=== PATIENT | female | born 1955 | race Caucasian/White ===

== ENCOUNTER 2021-08-29 16:18 | Inpatient (IN) | payer MEDICARE, BC, OTHER ==
[~2021-08-29] VITALS: Ht 162.6 cm; Wt 83.5 kg
--- NOTE | 2021-08-29 16:32 | NUR ---
PT SEEN AND EXAMINED BY .
--- NOTE | 2021-08-29 16:53 | NUR ---
URINE SPECIMEN COLLECTED AND SENT TO LAB.
[2021-08-29] MEDS ORDERED: CHOL100062 PO (17:10)
[2021-08-29] MEDS ORDERED: FEXO180T94 PO (17:10)
[2021-08-29] MEDS ORDERED: CLON0.5T PO (17:10)
[2021-08-29] MEDS ORDERED: ROSU10TA29 PO (17:10)
[2021-08-29] MEDS ORDERED: HYDR-3980 PO (17:10)
[2021-08-29] MEDS ORDERED: DIPH50CA4 PO (17:10)
[2021-08-29] MEDS ORDERED: IPRA42SP (17:10)
[2021-08-29] MEDS ORDERED: BUDE10.2 IH (17:10)
[2021-08-29] MEDS ORDERED: BISA5TAB10 PO (17:10)
[2021-08-29] MEDS ORDERED: MELO-107 PO (17:10)
--- NOTE | 2021-08-29 17:13 | NUR ---
MOVE SHEET SUBMITTED AND CALLED FOR BED.
[2021-08-29] MEDS ORDERED: LORAZEPAM 1 MG TABLET PO ONE (17:30)
[2021-08-29] MEDS ORDERED: LORAZEPAM 0.5 MG TABLET ONE (17:32)
--- NOTE | 2021-08-29 17:35 | NUR ---
MEDICATED PER ERMD ORDER, PT RUI WELL. WILL CONT TO MONITOR.
[2021-08-29 17:39] LABS: BASOPHILS # (AUTO) 0.1 K/uL (0.0-0.2); EOSINOPHILS % (AUTO) 0.6 % (0.0-6.0); HEMATOCRIT 45 % (33-45); HEMOGLOBIN 15.3 g/dL (11.5-14.8); LYMPHOCYTES # (AUTO) 2.3 K/uL (0.8-4.8); LYMPHOCYTES % (AUTO) 20.5 % (20.0-44.0); MEAN CORPUSCULAR HGB CONC 34 g/dl (31.0-36.0); MEAN CORPUSCULAR VOLUME 97 fL (82-100); MONOCYTES # (AUTO) 1.2 K/uL (0.1-1.30); NEUTROPHILS # (AUTO) 7.5 K/uL (1.8-8.9); NEUTROPHILS % (AUTO) 66.9 % (43.0-81.0); PLATELET COUNT (AUTO) 306 K/uL (150-450); WHITE BLOOD COUNT (AUTO) 11.1 K/uL (4.3-11.0)
[2021-08-29 17:55] LABS: ACETAMINOPHEN 4 ug/ml (10-30); ALANINE AMINOTRANSFERASE 44 U/L (12-78); ALBUMIN 4.5 g/dL (3.4-5.0); ALCOHOL, BLOOD < 3 mg/dL (0-0); ALKALINE PHOSPHATASE 90 U/L (46-116); ASPARTATE AMINOTRANSFERASE 25 U/L (15-37); BILIRUBIN,DIRECT 0.2 mg/dL (0.0-0.2); BILIRUBIN,TOTAL 0.8 mg/dL (0.2-1.0); CALCIUM, SERUM 9.4 mg/dL (8.5-10.1); CARBON DIOXIDE 27 mmol/L (21-32); CHLORIDE 105 mmol/L (98-107); CREATININE 1.3 mg/dL (0.6-1.3); GLUCOSE 99 mg/dL (74-106); POTASSIUM 3.7 mmol/L (3.5-5.1); SODIUM SERUM 143 mmol/L (136-145); UREA NITROGEN, BLOOD 11 mg/dL (7-18)
[2021-08-29 18:19] LABS: BILIRUBIN,URINE MODERATE (NEGATIVE); COLOR,URINE DARK YELLOW (YELLOW); LEUKOCYTE ESTERASE ,URINE SMALL (NEGATIVE); NITRITE, URINE NEGATIVE (NEGATIVE); PROTEIN,URINE 100 mg/dl (NEGATIVE); UGLUCOSE 100 MG/DL mg/dL (NEGATIVE)
[2021-08-29 18:23] LABS: BACTERIA,URINE 2+ /HPF (None Seen); RBC,URINE 21-50 /HPF (0-2)
[2021-08-29 18:24] LABS: CALCIUM OXALATE CRYSTALS,UR Many /HPF (None Seen)
--- NOTE | 2021-08-29 18:34 | NUR ---
SOPHIA KERN [phone] ETA 60 MINS.
--- NOTE | 2021-08-29 18:49 | NUR ---
BED PROVIDED. GOING TO [facility], 103. AFTER SHIFT PER NURSING ARC CUTTER.
[2021-08-29] MEDS ORDERED: CEPHALEXIN MONOHYDRATE 500 MG CAPSULE PO SCH (22:00)
[2021-08-30] MEDS ORDERED: HYDROCODONE/APAP 10/325MG TABLET ONE (00:34)
[2021-08-30] MEDS ORDERED: diphenhydrAMINE HCL 50 MG CAPSULE ONE (00:34)
[2021-08-30] MEDS: HYDROCODONE/APAP 10/325MG TABLET PO PRN ×3 (00:45→21:39)
[2021-08-30] MEDS ORDERED: cetrizine 10 MG TABLET PO PRN (01:00)
[2021-08-30] MEDS: diphenhydrAMINE HCL 50 MG CAPSULE PO PRN (02:51)
--- NOTE | 2021-08-30 03:15 | NUR ---
AMBULATED TO THE RESTROOM, VSS.
--- NOTE | 2021-08-30 03:35 | NUR ---
MRSA SWAB COLLECTED AND SENT TO LAB. PATIENT'S BELONGINGS LIST DONE.
--- NOTE | 2021-08-30 06:02 | NUR ---
AWAKE IN BED, VSS.
--- NOTE | 2021-08-30 07:51 | NUR ---
going to 212.
--- NOTE | 2021-08-30 08:13 | NUR ---
report given to nikita Castro. awaiting transfer to floor.
--- NOTE | 2021-08-30 08:32 | NUR ---
THE PATIENT IS TRANSFERED TO [facility] IN STABLE CONDITION AND PER POLICY.
[2021-08-30] MEDS: BUDESONIDE RESPULE INH 0.5 MG/2 ML AMPUL.NEB NEB SCH (09:00)
--- NOTE | 2021-08-30 09:15 | NUR ---
ADMITTED 66-Y/O FEMALE. BROUGHT INTO GPS UNIT FROM [facility] VIA [facility] 2 APPROX 0840 AM . ADMITTED ON 5150 FOR DTS. PER HOLD, PT REPORTS SHE HAS BEING UNABLE TO EAT FOR A WHILE, LOST A LOT OF WEIGHT, HAVING THOUGHTS OF KILLING HERSELF OR DYING. SHE REPORTS SHE IS UNABLE TO GET THOUGHTS OF HARMING HERSELF OUT OF HER MIND. PATIENT REPORTS PREVIOUS HISTORY OF SELF-HARM AND PAST HOSPITALIZATION AT [facility]. PT REPORTS DIAGNOSIS OF DEPRESSION AND PRESCRIBED KLONOPIN AND PROZAC. UPON FACE TO FACE ASSESSMENT, PT IS ALERT AND ORIENTED X3, DEPRESSED MOOD, ANXIOUS. PT STATES HAVING SI AT THIS TIME. PT DENIES SUICIDAL PLAN AT THIS TIME. PT DENIES HI AT THIS TIME. PT DENIES A/V HALLUCINATIONS AT THIS TIME. BOTH MD AWARE AND NOTIFIED OF THE ADMISSION. BELONGINGS AND CONTRABAND WERE DONE. SKIN ASSESSMENT DONE. PT'S RIGHTS DISCUSSED. PROVIDED PT WITH HANDBOOK AND MEDICATIONS GUIDE. ENVIRONMENTAL SAFETY CHECK DONE. VERBALIZATION OF FEELINGS ENCOURAGED. ORIENTED PT TO UNIT POLICY. NO ACUTE DISTRESS NOTED. VSS. BED IN LOWEST LOCKED POSITION, HOB ELEVATED, SIDE RAILS UP X2. WILL MONITOR Q15 MINS ROUNDS FOR SAFETY AND BEHAVIOR.
[2021-08-30] MEDS ORDERED: BLOOD SUGAR DIAGNOSTIC 1 EACH STRIP IN ONE (11:00)
[2021-08-30] MEDS ORDERED: ACETAMINOPHEN 325 MG TABLET PO PRN (11:00)
[2021-08-30] MEDS ORDERED: MAG HYDROX/AL HYDROX/SIMETH 30 ML UDC PO PRN (11:00)
[2021-08-30] MEDS ORDERED: MAGNESIUM HYDROXIDE 30 ML UDC PO PRN (11:00)
[2021-08-30 11:44] VITALS: BP 110/46
[2021-08-30] MEDS: CEPHALEXIN MONOHYDRATE 500 MG CAPSULE PO SCH ×4 (12:03→21:37)
[2021-08-30] MEDS: LORAZEPAM 0.5 MG TABLET PO PRN ×3 (12:03→18:15)
[2021-08-30] MEDS: CHOLECALCIFEROL 1,000 UNIT TABLET (VIT D3) PO SCH (12:03)
[2021-08-30] MEDS: MELOXICAM 7.5 MG TABLET PO SCH (12:03)
--- NOTE | 2021-08-30 12:05 | NUR ---
ATIVAN 0.5 MG GIVEN FOR ANXIETY. WILL CONTINUE TO MONITOR.
--- NOTE | 2021-08-30 12:25 | NUR ---
SW Friend Contact: SW contacted patient's friend Dulce ([phone]) to notify of admission.
--- NOTE | 2021-08-30 12:25 | NUR ---
MIR Initial Discharge: Patient lives at [address] [place] [address], [place] [address]; ([phone]). Patient would want to discharge back home upon dc and reports that she lives with a roommate. MIR will work with the MD and treatment team to coordinate appropriate discharge.
--- NOTE | 2021-08-30 13:00 | NUR ---
KEFLEX 1300 NOT ADMINISTERED DUE TO 0900 DOSE GIVEN AT 1200
--- NOTE | 2021-08-30 13:40 | NUR ---
NORCO 10/325 GIVEN FOR LOWER BACK PAIN. WILL REASSESS AND CONTINUE TO MONITOR.
--- NOTE | 2021-08-30 15:29 | NUR ---
SS group note: SW met with pt. at bedside and pt. was lying in bed with eyes closed. Pt. was arousable by verbal cues. SW invited pt. to participate in addressing: "What they hope will improve after their treatment at [facility]". Pt. is alert & oriented and stated, " I need a break today, I am not feeling well. It is my first day here". SW validated her and encouraged her to join in if she feels better. Pt. stated she would try. MIR will monitor pt. and invite pt. to the next group if appropriate.
[2021-08-30 16:00] VITALS: BP 105/52
[2021-08-30] MEDS: ATORVASTATIN 40 MG TABLET PO SCH (17:15)
--- NOTE | 2021-08-30 18:13 | NUR ---
ATIVAN 0.5MG GIVEN FOR ANXIETY. WILL CONTINUE TO MONITOR.
[2021-08-30] MEDS: ALBUTEROL FS 2.5 MG/3 ML VIAL.NEB NEB SCH (19:30)
[2021-08-30 19:52] VITALS: BP 112/59
--- NOTE | 2021-08-30 21:39 | NUR ---
GPS-RN NOTES: LOWER BACK PAIN PATIENT C/O LOWER BACK PAIN ON A PAIN SCALE OF 7/10. PRN NORCO 10/325MG 1 TAB PO GIVEN PER PT'S REQUEST. WILL CONTINUE TO REASSESS.
[2021-08-30] MEDS: TEMAZEPAM 7.5 MG CAPSULE PO PRN (22:48)
--- NOTE | 2021-08-30 22:48 | NUR ---
GPS-RN NOTES: INSOMNIA PATIENT C/O INABILITY TO SLEEP. PRN RESTORIL 7.5MG PO GIVEN. WILL CONTINUE TO MONITOR.
[2021-08-31] MEDS: diphenhydrAMINE HCL 50 MG CAPSULE PO PRN ×2 (00:50→22:48)
[2021-08-31] MEDS: ALBUTEROL FS 2.5 MG/3 ML VIAL.NEB NEB SCH ×4 (01:30→19:30)
[2021-08-31 07:59] LABS: ALBUMIN 3.4 g/dL (3.4-5.0); BILIRUBIN,TOTAL 0.5 mg/dL (0.2-1.0); CALCIUM, SERUM 8.5 mg/dL (8.5-10.1); CHOLESTEROL 153 mg/dL (<200); CREATININE 0.8 mg/dL (0.6-1.3); HDL CHOLESTEROL 37 mg/dL (40-60); LDL 81 mg/dL (0-99); POTASSIUM 3.5 mmol/L (3.5-5.1); TOTAL PROTEIN, SERUM 6.2 g/dL (6.4-8.2); TRIGLYCERIDES 210 mg/dL (30-150)
[2021-08-31 08:00] VITALS: BP 108/56
[2021-08-31] MEDS: CHOLECALCIFEROL 1,000 UNIT TABLET (VIT D3) PO SCH (08:24)
[2021-08-31] MEDS: CEPHALEXIN MONOHYDRATE 500 MG CAPSULE PO SCH ×4 (08:24→20:12)
[2021-08-31] MEDS: LORAZEPAM 0.5 MG TABLET PO PRN ×3 (08:24→20:12)
[2021-08-31] MEDS: MELOXICAM 7.5 MG TABLET PO SCH (08:24)
--- NOTE | 2021-08-31 08:26 | NUR ---
ATIVAN 0.5 MG GIVEN FOR ANXIETY. WILL CONTINUE TO MONITOR.
[2021-08-31] MEDS: BUDESONIDE RESPULE INH 0.5 MG/2 ML AMPUL.NEB NEB SCH ×2 (09:00→16:03)
[2021-08-31] MEDS: DULOXETINE HCL 30 MG CAPSULE.DR PO SCH (09:17)
--- NOTE | 2021-08-31 14:59 | NUR ---
ATIVAN 0.5 MG GIVEN FOR ANXIETY. WILL CONTINUE TO MONITOR.
[2021-08-31 15:49] VITALS: BP 151/65
[2021-08-31] MEDS: ATORVASTATIN 40 MG TABLET PO SCH (17:06)
[2021-08-31] MEDS: HYDROCODONE/APAP 10/325MG TABLET PO PRN (19:33)
[2021-08-31 20:00] VITALS: BP 114/51
[2021-08-31] MEDS: TEMAZEPAM 7.5 MG CAPSULE PO PRN (21:37)
[2021-09-01] MEDS: ALBUTEROL FS 2.5 MG/3 ML VIAL.NEB NEB SCH ×4 (01:30→19:19)
[2021-09-01 08:00] VITALS: BP 137/78
[2021-09-01] MEDS: CHOLECALCIFEROL 1,000 UNIT TABLET (VIT D3) PO SCH (08:52)
[2021-09-01] MEDS: DULOXETINE HCL 30 MG CAPSULE.DR PO SCH (08:52)
[2021-09-01] MEDS: MELOXICAM 7.5 MG TABLET PO SCH (08:53)
[2021-09-01] MEDS: CEPHALEXIN MONOHYDRATE 500 MG CAPSULE PO SCH ×4 (08:53→21:01)
[2021-09-01] MEDS: IPRATROPIUM BROMIDE 0.06% 15 ML NASPR NS SCH ×2 (09:00→17:06)
[2021-09-01] MEDS: BUDESONIDE RESPULE INH 0.5 MG/2 ML AMPUL.NEB NEB SCH ×2 (09:00→17:00)
[2021-09-01] MEDS: LORAZEPAM 0.5 MG TABLET PO PRN ×2 (09:47→20:02)
[2021-09-01] MEDS: BISACODYL (5 MG) 5 MG TABLET.DR PO PRN (09:50)
--- NOTE | 2021-09-01 09:50 | NUR ---
RN NOTES PT VERBALIZED THAT SHE'S ANXIOUS AND REQUESTED FOR ATIVAN. PRN ATIVAN 1MG PO GIVEN AT 0947. WILL CONTINUE TO MONITOR.
--- NOTE | 2021-09-01 13:33 | NUR ---
MIR Individual Therapy: SW met with patient for individual counseling. Patient presented with depressed mood. Patient reported that she continues to have active suicidal thoughts and that it feels "black". Patient expressed that the past two years she has been feeling depressed because of COVID and losing her job. She stated she has been having also mental and physical decline and it has become stressful because she is unable to find a job. SW emotional listened to pt and helped pt express her emotions. SW also offered pt support at home with Home health or if pt would want to go to a nursing facility to continue treatment. Pt stated she would have to think about this. SW will follow up daily.
[2021-09-01] MEDS: HYDROCODONE/APAP 10/325MG TABLET PO PRN ×2 (14:11→21:02)
--- NOTE | 2021-09-01 14:12 | NUR ---
RN NOTES PATIENT C/O ACHING LOWER BACK PAIN, 8/10 SCALE. PRN NORCO 10/325 MG PO GIVEN AT 1411. WILL CONTINUE TO MONITOR AND REASSESS PT.
[2021-09-01 16:00] VITALS: BP 122/72
[2021-09-01] MEDS: ATORVASTATIN 40 MG TABLET PO SCH (17:05)
[2021-09-01 19:55] VITALS: BP 130/80
[2021-09-01] MEDS: TEMAZEPAM 7.5 MG CAPSULE PO PRN (21:02)
[2021-09-01] MEDS: diphenhydrAMINE HCL 50 MG CAPSULE PO PRN (22:06)
[2021-09-02] MEDS: ALBUTEROL FS 2.5 MG/3 ML VIAL.NEB NEB SCH ×4 (01:25→19:30)
--- NOTE | 2021-09-02 07:42 | NUR ---
RT NOTE PT DIFFERED TX AT THIS TIME. NO SOB NOTED. RN SUMIT AWARE.
[2021-09-02] MEDS: LORAZEPAM 0.5 MG TABLET PO PRN ×3 (08:01→23:21)
[2021-09-02] MEDS: BUDESONIDE RESPULE INH 0.5 MG/2 ML AMPUL.NEB NEB SCH ×2 (08:01→16:25)
[2021-09-02 08:58] VITALS: BP 130/76
[2021-09-02] MEDS: IPRATROPIUM BROMIDE 0.06% 15 ML NASPR NS SCH ×2 (09:13→16:25)
[2021-09-02] MEDS: MELOXICAM 7.5 MG TABLET PO SCH (09:14)
[2021-09-02] MEDS: PANTOPRAZOLE 40 MG TABLET.DR PO SCH (09:14)
[2021-09-02] MEDS: CEPHALEXIN MONOHYDRATE 500 MG CAPSULE PO SCH ×4 (09:14→21:19)
[2021-09-02] MEDS: DULOXETINE HCL 30 MG CAPSULE.DR PO SCH (09:14)
[2021-09-02] MEDS: PHENAZOPYRIDINE HCL 200 MG TABLET PO SCH ×3 (09:14→17:14)
[2021-09-02] MEDS: CHOLECALCIFEROL 1,000 UNIT TABLET (VIT D3) PO SCH (09:15)
--- NOTE | 2021-09-02 11:36 | NUR ---
MIR Individual Therapy: SW met with patient for individual counseling. Patient presented with depressed mood. Patient stated she has a headache and is unable to have therapy at this time. MIR will follow up.
[2021-09-02] MEDS: HYDROCODONE/APAP 10/325MG TABLET PO PRN ×2 (12:34→21:19)
--- NOTE | 2021-09-02 13:45 | NUR ---
Court Hearing: Patient's court hearing for 5250 was today and it was upheld for GD and danger to self.
--- NOTE | 2021-09-02 13:50 | NUR ---
RT NOTE PT DIFFERED TX AT THIS TIME. NO SOB NOTED. RN SUMIT AWARE.
--- NOTE | 2021-09-02 14:00 | NUR ---
RN NOTES PATIENT'S BREATHING IS EVEN AND UNLABORED, TOLERATING ROOM AIR. NO RESPIRATORY DISTRESS NOR SOB NOTED.
[2021-09-02 16:00] VITALS: BP 112/60
[2021-09-02] MEDS: ATORVASTATIN 40 MG TABLET PO SCH (17:12)
--- NOTE | 2021-09-02 19:30 | NUR ---
GPS RN NOTE, RECEIVED PATIENT AWAKE AND IN BED, NO S/S OR COMPLAINTS OF PAIN AT THIS TIME. PATIENT IS DISPLAYING NO S/S OF APPARENT DISTRESS AT THIS TIME. PATIENT BREATHING IS UNLABORED WITH EQUAL RISE AND FALL OF THE CHEST. PATIENT IS ALERT AND ORIENTED X 3 ON ROOM AIR WITH A SPO2 95%. PATIENT IS COMPLIANT WITH MEDICATIONS, DEPRESSED, ANXIOUS AT TIMES, AND COOPERATIVE. PATIENT DENIES SUICIDAL AND HOMICIDAL IDEATIONS AT THIS TIME. PATIENT ASSISTED WITH TURNING AND REPOSITIONING Q2HR AND PRN FOR COMFORT AND CIRCULATION. PATIENT HAS NO NEEDS AT THIS TIME. PATIENT EDUCATED ON THE USE OF THE CALL CLEMENTE. PATIENT BED SIDE RAILS UP X 2 FOR SAFETY. PATIENT BED IS LOCKED, LOW, WITH BED ALARM ON. WILL CONTINUE TO MONITOR THIS PATIENT Q15 MINUTES WITH THE HELP OF STAFF TO MAINTAIN SAFETY.
[2021-09-02 20:00] VITALS: BP 133/61
--- NOTE | 2021-09-02 21:19 | NUR ---
GPS RN NOTE, PATIENT HAS A COMPLAINT OF LOWER BACK PAIN AT 8 OUT OF 10 ON THE PAIN SCALE AND IS REQUESTING NORCO AT THIS TIME. PATIENT VITAL SIGNS ARE STABLE. GAVE NORCO 10-325 1 TAB PO TID PRN. WILL REASSESS PAIN AND I WILL CONTINUE TO MONITOR THIS PATIENT WITH THE HELP OF STAFF.
[2021-09-02] MEDS: TEMAZEPAM 7.5 MG CAPSULE PO PRN (22:17)
--- NOTE | 2021-09-02 22:19 | NUR ---
GPS RN NOTE, PATIENT HAS A COMPLAINT OF NOT BEING ABLE TO SLEEP AND IS REQUESTING RESTORIL AT THIS TIME. PATIENT VITAL SIGNS ARE STABLE. GAVE RESTORIL 15MG PO HS PRN ORDERED. WILL REASSESS FOR INSOMNIA AND WILL CONTINUE TO MONITOR THIS PATIENT WITH THE HELP OF STAFF.
--- NOTE | 2021-09-02 23:22 | NUR ---
GPS RN NOTE, PATIENT HAS A COMPLAINT OF FEELING ANXIOUS AND IS REQUESTING ATIVAN AT THIS TIME. PATIENT VITAL SIGNS ARE STABLE. GAVE ATIVAN 1MG PO Q6HR PRN ORDERED. WILL REASSESS PATIENT FOR ANXIETY AND I WILL CONTINUE TO MONITOR THIS PATIENT WITH THE HELP OF STAFF.
[2021-09-03] MEDS: ALBUTEROL FS 2.5 MG/3 ML VIAL.NEB NEB SCH ×4 (01:30→19:30)
[2021-09-03 08:00] VITALS: BP 110/56
[2021-09-03] MEDS: BUDESONIDE RESPULE INH 0.5 MG/2 ML AMPUL.NEB NEB SCH ×2 (08:03→17:00)
--- NOTE | 2021-09-03 08:04 | NUR ---
RT NOTE PT DIFFERED TX AT THIS TIME. NO SOB NOTED. RN CESAR AWARE.
[2021-09-03] MEDS: CEPHALEXIN MONOHYDRATE 500 MG CAPSULE PO SCH ×4 (08:38→21:01)
[2021-09-03] MEDS: PHENAZOPYRIDINE HCL 200 MG TABLET PO SCH ×3 (08:38→17:22)
[2021-09-03] MEDS: CHOLECALCIFEROL 1,000 UNIT TABLET (VIT D3) PO SCH (08:38)
[2021-09-03] MEDS: PANTOPRAZOLE 40 MG TABLET.DR PO SCH (08:38)
[2021-09-03] MEDS: MELOXICAM 7.5 MG TABLET PO SCH (08:38)
[2021-09-03] MEDS: DULOXETINE HCL 30 MG CAPSULE.DR PO SCH ×2 (08:40→12:12)
[2021-09-03] MEDS: LORAZEPAM 0.5 MG TABLET PO PRN ×2 (08:41→19:31)
[2021-09-03] MEDS: IPRATROPIUM BROMIDE 0.06% 15 ML NASPR NS SCH ×2 (08:47→17:00)
--- NOTE | 2021-09-03 11:00 | NUR ---
Coordination of Care: Patient will follow up primary doctor Laura Preston MD located at [address] [facility] [address], [place] [address]; on September 20 8:45AM, per information receptionist.
[2021-09-03] MEDS: diphenhydrAMINE HCL 50 MG CAPSULE PO PRN (12:10)
[2021-09-03] MEDS: HYDROCODONE/APAP 10/325MG TABLET PO PRN (13:00)
--- NOTE | 2021-09-03 13:54 | NUR ---
RT NOTE PATIENT DIFFERED TX AT THIS TIME. NO SOB NOTED. RN CESAR AWARE.
[2021-09-03 16:00] VITALS: BP 135/74
[2021-09-03] MEDS: ATORVASTATIN 40 MG TABLET PO SCH (17:23)
[2021-09-03] MEDS: BISACODYL (5 MG) 5 MG TABLET.DR PO PRN (17:31)
--- NOTE | 2021-09-03 19:30 | NUR ---
GPS RN NOTE, RECEIVED PATIENT AWAKE AND IN BED, NO S/S OR COMPLAINTS OF PAIN AT THIS TIME. PATIENT IS DISPLAYING NO S/S OF APPARENT DISTRESS AT THIS TIME. PATIENT BREATHING IS UNLABORED WITH EQUAL RISE AND FALL OF THE CHEST. PATIENT IS ALERT AND ORIENTED X 3 ON ROOM AIR WITH A SPO2 95%. PATIENT IS COMPLIANT WITH MEDICATIONS, ANXIOUS, AND COOPERATIVE. PATIENT DENIES SUICIDAL AND HOMICIDAL IDEATIONS AT THIS TIME. PATIENT ASSISTED WITH TURNING AND REPOSITIONING Q2HR AND PRN FOR COMFORT AND CIRCULATION. PATIENT HAS NO NEEDS AT THIS TIME. PATIENT EDUCATED ON THE USE OF THE CALL CLEMENTE. PATIENT BED SIDE RAILS UP X 2 FOR SAFETY. PATIENT BED IS LOCKED, LOW, WITH BED ALARM ON. WILL CONTINUE TO MONITOR THIS PATIENT Q15 MINUTES WITH THE HELP OF STAFF TO MAINTAIN SAFETY.
[2021-09-03 20:00] VITALS: BP 153/81
[2021-09-03] MEDS: TEMAZEPAM 7.5 MG CAPSULE PO PRN (21:01)
[2021-09-04 00:48] VITALS: BP 149/78
--- NOTE | 2021-09-04 00:48 | NUR ---
GPS RN NOTE, PATIENT HAS A COMPLAINT OF NOT BEING ABLE TO SLEEP AND IS HAVING RACING THOUGHTS OF HANGING HERSELF. PATIENT IS REQUESTING AN INJECTION AT THIS TIME. PATIENT VITAL SIGNS ARE STABLE. PAGED PROSPER ADKINS NP AND INFORMED HER OF MY FINDINGS. PRSOPER ADKINS CHEMICAL OPERATIONS SPECIALIST ORDERED BENADRYL 50MG IM ONCE AND ZYPREXA 5MG IM ONCE. ALL ORDERS NOTED AND CARRIED OUT. WILL CONTINUE TO MONITOR THIS PATIENT WITH THE HELP OF STAFF.
[2021-09-04] MEDS ORDERED: OLANZAPINE 10 MG VIAL IM ONE (01:00)
[2021-09-04] MEDS ORDERED: diphenhydrAMINE HCL 50 MG/ML VIAL IM ONE (01:00)
[2021-09-04] MEDS: ALBUTEROL FS 2.5 MG/3 ML VIAL.NEB NEB SCH ×3 (01:30→12:41)
[2021-09-04 07:20] LABS: BASOPHILS # (AUTO) 0.1 K/uL (0.0-0.2); BASOPHILS % (AUTO) 1.1 % (0.0-2.0); EOSINOPHILS % (AUTO) 3.6 % (0.0-6.0); HEMATOCRIT 39 % (33-45); HEMOGLOBIN 13.7 g/dL (11.5-14.8); LYMPHOCYTES # (AUTO) 2.1 K/uL (0.8-4.8); LYMPHOCYTES % (AUTO) 33.7 % (20.0-44.0); MEAN CORPUSCULAR HGB CONC 35 g/dl (31.0-36.0); MEAN CORPUSCULAR VOLUME 96 fL (82-100); MONOCYTES # (AUTO) 0.9 K/uL (0.1-1.30); MONOCYTES % (AUTO) 14.8 % (2.0-12.0); NEUTROPHILS # (AUTO) 2.9 K/uL (1.8-8.9); NEUTROPHILS % (AUTO) 46.8 % (43.0-81.0); PLATELET COUNT (AUTO) 219 K/uL (150-450); WHITE BLOOD COUNT (AUTO) 6.2 K/uL (4.3-11.0)
--- NOTE | 2021-09-04 07:48 | NUR ---
RT NOTE PATIENT DIFFERED TX AT THIS TIME. NO SOB NOTED. RN CESAR AWARE.
[2021-09-04] MEDS: BUDESONIDE RESPULE INH 0.5 MG/2 ML AMPUL.NEB NEB SCH ×2 (07:58→17:00)
[2021-09-04] MEDS: IPRATROPIUM BROMIDE 0.06% 15 ML NASPR NS SCH ×2 (07:58→17:00)
[2021-09-04 08:00] VITALS: BP 127/61
[2021-09-04 08:11] LABS: CREATININE 0.8 mg/dL (0.6-1.3); MAGNESIUM 1.9 mg/dL (1.8-2.4); PHOSPHORUS 3.9 mg/dL (2.5-4.9); POTASSIUM 3.5 mmol/L (3.5-5.1)
[2021-09-04] MEDS: DULOXETINE HCL 30 MG CAPSULE.DR PO SCH ×2 (08:18→12:35)
[2021-09-04] MEDS: MELOXICAM 7.5 MG TABLET PO SCH (08:18)
[2021-09-04] MEDS: PANTOPRAZOLE 40 MG TABLET.DR PO SCH (08:18)
[2021-09-04] MEDS: CEPHALEXIN MONOHYDRATE 500 MG CAPSULE PO SCH ×4 (08:18→21:32)
[2021-09-04] MEDS: CHOLECALCIFEROL 1,000 UNIT TABLET (VIT D3) PO SCH (08:19)
[2021-09-04] MEDS: LORAZEPAM 0.5 MG TABLET PO PRN ×2 (10:23→18:06)
[2021-09-04] MEDS: HYDROCODONE/APAP 10/325MG TABLET PO PRN (14:10)
[2021-09-04 16:00] VITALS: BP 143/80
[2021-09-04] MEDS: ATORVASTATIN 40 MG TABLET PO SCH (17:51)
[2021-09-04 20:17] VITALS: BP 115/64
[2021-09-04] MEDS: diphenhydrAMINE HCL 50 MG CAPSULE PO PRN (21:18)
--- NOTE | 2021-09-04 21:20 | NUR ---
RN NOTES : PT. C/O ALLERGY REQUESTING PRN BENADRYL 50 MG PO , GIVEN PER PT. REQUEST, WILL CONTINUE TO MONITOR.
[2021-09-04] MEDS: OLANZAPINE 5 MG TABLET PO SCH (22:09)
[2021-09-04] MEDS: TEMAZEPAM 7.5 MG CAPSULE PO PRN (23:09)
--- NOTE | 2021-09-04 23:11 | NUR ---
RN NOTES: INSOMNIA PATIENT C/O INABILITY TO SLEEP. PRN RESTORIL 15 MG PO GIVEN. WILL CONTINUE TO MONITOR.
[2021-09-05] MEDS: ALBUTEROL FS 2.5 MG/3 ML VIAL.NEB NEB SCH ×3 (07:35→19:30)
[2021-09-05 08:00] VITALS: BP 108/60
[2021-09-05] MEDS: BUDESONIDE RESPULE INH 0.5 MG/2 ML AMPUL.NEB NEB SCH ×2 (08:04→15:08)
[2021-09-05] MEDS: IPRATROPIUM BROMIDE 0.06% 15 ML NASPR NS SCH ×2 (08:36→17:00)
[2021-09-05] MEDS: MELOXICAM 7.5 MG TABLET PO SCH (09:22)
[2021-09-05] MEDS: PANTOPRAZOLE 40 MG TABLET.DR PO SCH (09:22)
[2021-09-05] MEDS: DULOXETINE HCL 30 MG CAPSULE.DR PO SCH ×2 (09:22→13:42)
[2021-09-05] MEDS: CHOLECALCIFEROL 1,000 UNIT TABLET (VIT D3) PO SCH (09:23)
[2021-09-05] MEDS: LORAZEPAM 0.5 MG TABLET PO PRN ×2 (12:05→19:15)
[2021-09-05 16:00] VITALS: BP 138/72
[2021-09-05] MEDS: DOCUSATE SODIUM 100 MG CAPSULE PO PRN (16:55)
[2021-09-05] MEDS: ATORVASTATIN 40 MG TABLET PO SCH (16:55)
[2021-09-05 19:51] VITALS: BP 125/76
--- NOTE | 2021-09-05 20:15 | NUR ---
RT NOTE PT REFUSED TX AT THIS TIME. NO RESPIRATORY DISTRESS NOTED.
[2021-09-05] MEDS: diphenhydrAMINE HCL 50 MG CAPSULE PO PRN (21:35)
[2021-09-05] MEDS: OLANZAPINE 5 MG TABLET PO SCH (21:35)
[2021-09-05] MEDS: TEMAZEPAM 7.5 MG CAPSULE PO PRN (22:45)
[2021-09-06] MEDS: ALBUTEROL FS 2.5 MG/3 ML VIAL.NEB NEB SCH ×4 (01:00→19:30)
--- NOTE | 2021-09-06 05:40 | NUR ---
Urine collected. Called lab for pickup.
[2021-09-06] MEDS: PANTOPRAZOLE 40 MG TABLET.DR PO SCH (07:30)
[2021-09-06 08:00] VITALS: BP 122/64
[2021-09-06] MEDS: BUDESONIDE RESPULE INH 0.5 MG/2 ML AMPUL.NEB NEB SCH ×2 (08:19→17:00)
[2021-09-06] MEDS: DULOXETINE HCL 30 MG CAPSULE.DR PO SCH ×2 (09:23→12:48)
[2021-09-06] MEDS: CHOLECALCIFEROL 1,000 UNIT TABLET (VIT D3) PO SCH (09:23)
[2021-09-06] MEDS: MELOXICAM 7.5 MG TABLET PO SCH (09:24)
[2021-09-06] MEDS: LORAZEPAM 0.5 MG TABLET PO PRN ×2 (09:44→17:16)
--- NOTE | 2021-09-06 09:44 | NUR ---
Patient c/o anxiety medicated with Ativan 1mg x1 will continue to monitor .
[2021-09-06 10:33] LABS: BILIRUBIN,URINE NEGATIVE (NEGATIVE); COLOR,URINE YELLOW (YELLOW); LEUKOCYTE ESTERASE ,URINE SMALL (NEGATIVE); NITRITE, URINE NEGATIVE (NEGATIVE); PROTEIN,URINE NEGATIVE (NEGATIVE); UGLUCOSE NEGATIVE (NEGATIVE); UROBILINOGEN,URINE 0.2 EU/dL (0.2)
[2021-09-06 10:44] LABS: RBC,URINE 0-2 /HPF (0-2)
[2021-09-06 10:45] LABS: BACTERIA,URINE 1+ /HPF (None Seen); SQUAMOUS EPITHELIAL CELL,UR Few /HPF (None Seen); URINE AMORPHOUS URATE Moderate /HPF (None Seen)
[2021-09-06] MEDS: HYDROCODONE/APAP 10/325MG TABLET PO PRN (12:48)
--- NOTE | 2021-09-06 13:30 | NUR ---
Individual Therapy: MIR met with pt. at bedside and checked-in with pt. Pt. states she was currently feeling "very low, hopeless". SW assessed for SI & plan. Pt. admits to current thoughts of suicide. Pt. stated,, "I guess if I were to try to end my life it would be by cutting my wrist". SW used active listening and acknowledged pt. for being vulnerable & transparent. SW educated pt. regarding positive coping mechanisms. Pt. expressed understanding. Pt. states she often times likes to read to keep her "mind occupied". SW inquired about pt.'s support system, and social life. Pt. discussed that the past 2 years have been very difficult for her. Pt. states that due to the social distancing/ quarantine mandate she has been experiencing isolation & she was a very social person prior. Pt. states she had to stop working and began to endure financial struggles.SW validated her struggles and encouraged her to try to socialize a bit more, SW discussed therapy as another type of support. Patient stated she is open to therapy. Pt.will be referred to therapist upon DC. MIR discussed with other Mulu HESTER.
--- NOTE | 2021-09-06 13:58 | NUR ---
MIR Individual Therapy: SW met with patient for individual counseling. Patient presented with depressed mood and appeared angry. Pt refused for counseling at this time.
--- NOTE | 2021-09-06 13:58 | NUR ---
SW Note: SW attempted to discuss treatment/discharge plan. Pt appeared frustrated. SW gave pt options of nursing facility. Pt refused and stated "I am not old".
[2021-09-06 16:00] VITALS: BP 140/78
[2021-09-06] MEDS: IPRATROPIUM BROMIDE 0.06% 15 ML NASPR NS SCH (17:00)
--- NOTE | 2021-09-06 17:17 | NUR ---
Patient c/o anxiety medicated with Ativan 1mg x1 will continue to monitor .
--- NOTE | 2021-09-06 19:30 | NUR ---
GPS RN NOTE, RECEIVED PATIENT AWAKE AND IN BED, NO S/S OR COMPLAINTS OF PAIN AT THIS TIME. PATIENT IS DISPLAYING NO S/S OF APPARENT DISTRESS AT THIS TIME. PATIENT BREATHING IS UNLABORED WITH EQUAL RISE AND FALL OF THE CHEST. PATIENT IS ALERT AND ORIENTED X 3 ON ROOM AIR WITH A SPO2 94%. PATIENT IS COMPLIANT WITH MEDICATIONS, ANXIOUS, AND COOPERATIVE. PATIENT DENIES SUICIDAL AND HOMICIDAL IDEATIONS AT THIS TIME. PATIENT ASSISTED WITH TURNING AND REPOSITIONING Q2HR AND PRN FOR COMFORT AND CIRCULATION. PATIENT HAS NO NEEDS AT THIS TIME. PATIENT EDUCATED ON THE USE OF THE CALL CLEMENTE. PATIENT BED SIDE RAILS UP X 2 FOR SAFETY. PATIENT BED IS LOCKED, LOW, WITH BED ALARM ON. WILL CONTINUE TO MONITOR THIS PATIENT Q15 MINUTES WITH THE HELP OF STAFF TO MAINTAIN SAFETY.
[2021-09-06 19:58] VITALS: BP 121/69
[2021-09-06] MEDS: ATORVASTATIN 40 MG TABLET PO SCH (21:19)
[2021-09-06] MEDS: OLANZAPINE 5 MG TABLET PO SCH (21:19)
[2021-09-06] MEDS: diphenhydrAMINE HCL 50 MG CAPSULE PO PRN (21:20)
--- NOTE | 2021-09-06 21:20 | NUR ---
GPS RN NOTE, PATIENT HAS A COMPLAINT OF HAVING ALLERGIES AND IS REQUESTING BENADRYL AT THIS TIME. PATIENT VITAL SIGNS ARE STABLE. GAVE BENADRYL 50MG PO DAILY PRN ORDERED. WILL REASSESS PATIENT AND I WILL CONTINUE TO MOITOR THIS PATIENT WITH THE HELP OF STAFF.
[2021-09-06] MEDS: TEMAZEPAM 7.5 MG CAPSULE PO PRN (23:01)
[2021-09-06] MEDS: DOCUSATE SODIUM 100 MG CAPSULE PO PRN (23:01)
--- NOTE | 2021-09-06 23:01 | NUR ---
GPS RN NOTE, PATIENT HAS A COMPLAINT OF CONSTIPATION AND IS REQUESTING COLACE AT THIS TIME. PATIENT VITAL SIGNS ARE STABLE. GAVE COLACE 100MG PO DAILY PRN ORDERED. WILL REASSESS PATIENT AND I WILL CONTINUE TO MONITOR THIS PATIENT WITH THE HELP OF STAFF.
--- NOTE | 2021-09-06 23:01 | NUR ---
GPS RN NOTE, PATIENT HAS A COMPLAINT OF NOT BEING ABLE TO SLEEP AND IS REQUESTING RESTORIL AT THIS TIME. PATIENT VITAL SIGNS ARE STABLE. GAVE RESTORIL 22.5MG PO HS PRN ORDERED. WILL REASSESS FOR INSOMNIA AND WILL CONTINUE TO MONITOR THIS PATIENT WITH THE HELP OF STAFF.
[2021-09-07] MEDS: ALBUTEROL FS 2.5 MG/3 ML VIAL.NEB NEB SCH ×4 (01:30→19:30)
[2021-09-07] MEDS: BUDESONIDE RESPULE INH 0.5 MG/2 ML AMPUL.NEB NEB SCH ×2 (07:45→17:00)
[2021-09-07 08:00] VITALS: BP 108/56
[2021-09-07] MEDS: CHOLECALCIFEROL 1,000 UNIT TABLET (VIT D3) PO SCH (08:08)
[2021-09-07] MEDS: DOCUSATE SODIUM 100 MG CAPSULE PO PRN (08:08)
[2021-09-07] MEDS: DULOXETINE HCL 30 MG CAPSULE.DR PO SCH ×2 (08:08→13:10)
[2021-09-07] MEDS: PANTOPRAZOLE 40 MG TABLET.DR PO SCH (08:08)
[2021-09-07] MEDS: HYDROCODONE/APAP 10/325MG TABLET PO PRN ×2 (08:09→09:40)
[2021-09-07] MEDS: MELOXICAM 7.5 MG TABLET PO SCH (08:09)
[2021-09-07] MEDS: IPRATROPIUM BROMIDE 0.06% 15 ML NASPR NS SCH ×3 (09:11→16:27)
[2021-09-07] MEDS: LORAZEPAM 0.5 MG TABLET PO PRN ×2 (09:41→15:40)
--- NOTE | 2021-09-07 09:42 | NUR ---
RN-CO: ATIVAN 1 MG PO GIVEN FOR ANXIETY.
--- NOTE | 2021-09-07 15:41 | NUR ---
RN-CO: ATIVAN 1 MG PO GIVEN FOR ANXIETY.
[2021-09-07 15:49] VITALS: BP 137/70
[2021-09-07] MEDS: BISACODYL (5 MG) 5 MG TABLET.DR PO PRN (16:44)
--- NOTE | 2021-09-07 16:45 | NUR ---
RN-CO: DULCOLAX 5 MG GIVEN FOR C/O CONSTIPATION.
[2021-09-07] MEDS: ATORVASTATIN 40 MG TABLET PO SCH (17:06)
[2021-09-07 20:00] VITALS: BP 125/69
[2021-09-07] MEDS: TEMAZEPAM 7.5 MG CAPSULE PO PRN (21:22)
--- NOTE | 2021-09-07 21:22 | NUR ---
GPS-RN NOTES: INSOMNIA PATIENT C/O INABILITY TO SLEEP. PRN RESTORIL 22.5MG PO GIVEN. WILL CONTINUE TO MONITOR.
[2021-09-07] MEDS: diphenhydrAMINE HCL 50 MG CAPSULE PO PRN (21:51)
[2021-09-07] MEDS: clonazePAM 0.5 MG TABLET PO PRN (23:31)
[2021-09-08] MEDS: ALBUTEROL FS 2.5 MG/3 ML VIAL.NEB NEB SCH ×3 (01:30→19:54)
--- NOTE | 2021-09-08 01:47 | NUR ---
RT NOTE PT REFUSED TX AT THIS TIME. NO RESPIRATORY DISTRESS NOTED. RN NOTIFIED.
--- NOTE | 2021-09-08 03:23 | NUR ---
GPS RN NOTES: ANXIETY PATIENT C/O FEELING ANXIOUS. PRN KLONOPIN 0.5MG PO GIVEN. WILL CONTINUE TO MONITOR FOR PATIENT'S SAFETY.
[2021-09-08 08:00] VITALS: BP 151/77
[2021-09-08] MEDS: PANTOPRAZOLE 40 MG TABLET.DR PO SCH (08:40)
[2021-09-08] MEDS: MELOXICAM 7.5 MG TABLET PO SCH (08:40)
[2021-09-08] MEDS: DULOXETINE HCL 30 MG CAPSULE.DR PO SCH ×2 (08:40→13:11)
[2021-09-08] MEDS: CHOLECALCIFEROL 1,000 UNIT TABLET (VIT D3) PO SCH (08:40)
[2021-09-08] MEDS: BUDESONIDE RESPULE INH 0.5 MG/2 ML AMPUL.NEB NEB SCH ×2 (09:00→19:54)
[2021-09-08] MEDS: IPRATROPIUM BROMIDE 0.06% 15 ML NASPR NS SCH ×2 (09:18→17:37)
[2021-09-08] MEDS: clonazePAM 0.5 MG TABLET PO PRN ×3 (09:38→21:20)
--- NOTE | 2021-09-08 09:40 | NUR ---
RN-NOTES PATIENT REQUESTING KLONOPIN , STATED" I NEED MY KLONOPIN". KLONOPIN 0.5MG P.O GIVEN PRN ORDER. WILL CONT. MONITORING FOR SAFETY AND BEHAVIOR.
--- NOTE | 2021-09-08 10:40 | NUR ---
RN-NOTES PATIENT IN BED INTERMITTENTLY SLEEPING,NO ACUTE DISTRESS NOTED.
--- NOTE | 2021-09-08 13:28 | NUR ---
RN-NOTES PATIENT REQUESTING TO HAVE HER BS CHECK,STATED" I JUST WANT TO KNOW IF MY BS IS GETTING HIGH BECAUSE OF THE MEDICATION". METAL CASKET MAKER DID CHECK WITH BS OF 133MG/DL, PER PATIENT SHE JUST DRANK ORANGE JUICE. DENIES ANY S/S OF HYPERGLYCEMIA.
--- NOTE | 2021-09-08 15:56 | NUR ---
RN-NOTES PATIENT STATED" I'M VERY ANXIOUS, I REALLY NEED MY KLONOPIN". KLONOPIN 0.5MG P.O GIVEN PRN ORDER. WILL CONT. MONITORING FOR SAFETY AND BEHAVIOR.
[2021-09-08 16:00] VITALS: BP 147/75
[2021-09-08] MEDS: ATORVASTATIN 40 MG TABLET PO SCH (17:37)
[2021-09-08 20:00] VITALS: BP 139/80
--- NOTE | 2021-09-08 21:24 | NUR ---
GPS RN NOTES: ANXIETY PATIENT C/O FEELING ANXIOUS AND TEARFUL. PRN KLONOPIN 0.5MG PO GIVEN PER PATIENT'S REQUEST. WILL CONTINUE TO MONITOR FOR PATIENT'S SAFETY.
[2021-09-08] MEDS: ZOLPIDEM TARTRATE 10 MG TABLET PO PRN (23:40)
--- NOTE | 2021-09-09 00:20 | NUR ---
GPS-RN NOTES: INSOMNIA PATIENT C/O INABILITY TO SLEEP. PRN AMBIEN 10MG PO GIVEN PER PATIENT'S REQUEST. WILL CONTINUE TO MONITOR.
[2021-09-09] MEDS: diphenhydrAMINE HCL 50 MG CAPSULE PO PRN (01:40)
[2021-09-09] MEDS: ALBUTEROL FS 2.5 MG/3 ML VIAL.NEB NEB SCH ×4 (01:40→21:01)
[2021-09-09] MEDS: DULOXETINE HCL 30 MG CAPSULE.DR PO SCH ×2 (07:58→13:32)
[2021-09-09] MEDS: clonazePAM 0.5 MG TABLET PO PRN ×2 (07:58→23:08)
[2021-09-09] MEDS: PANTOPRAZOLE 40 MG TABLET.DR PO SCH (07:58)
[2021-09-09 08:00] VITALS: BP 110/68
--- NOTE | 2021-09-09 08:00 | NUR ---
RN-NOTES PATIENT REQUESTING KLONOPIN , KLONOPIN 0.5MG P.O GIVEN PRN ORDER. WILL CONT. MONITORING FOR SAFETY AND BEHAVIOR.
[2021-09-09] MEDS: CHOLECALCIFEROL 1,000 UNIT TABLET (VIT D3) PO SCH (08:28)
[2021-09-09] MEDS: MELOXICAM 7.5 MG TABLET PO SCH (08:29)
[2021-09-09] MEDS: BUDESONIDE RESPULE INH 0.5 MG/2 ML AMPUL.NEB NEB SCH ×2 (09:00→16:55)
--- NOTE | 2021-09-09 09:00 | NUR ---
RN-NOTES PATIENT IN BED INTERMITTENTLY SLEEPING,NO ACUTE DISTRESS NOTED.
[2021-09-09] MEDS: IPRATROPIUM BROMIDE 0.06% 15 ML NASPR NS SCH ×2 (09:04→17:22)
[2021-09-09] MEDS: HYDROCODONE/APAP 10/325MG TABLET PO PRN ×2 (12:31→20:13)
[2021-09-09] MEDS: BISACODYL (5 MG) 5 MG TABLET.DR PO PRN (13:41)
[2021-09-09] MEDS: DOCUSATE SODIUM 100 MG CAPSULE PO PRN (13:44)
--- NOTE | 2021-09-09 13:48 | NUR ---
RN-NOTES PATIENT C/O CONSTIPATION. DULCOLAX 5MG P.O BUT PREFERS COLACE 100MG INSTEAD.
[2021-09-09 16:00] VITALS: BP 127/78
[2021-09-09] MEDS: ATORVASTATIN 40 MG TABLET PO SCH (17:16)
[2021-09-09 20:00] VITALS: BP 117/62
--- NOTE | 2021-09-09 20:14 | NUR ---
RN NOTE: PAIN PATIENT C/O LOWER BACK PAIN 04/27, PER PATIENT REQUEST, NORCO 10/325 MG 1 TAB PO ADMINISTERED ORDERED. WILL CONTINUE TO MONITOR FOR ANY CHANGE OF CONDITION.
--- NOTE | 2021-09-09 23:09 | NUR ---
RN NOTE: ANXIETY PATIENT VERBALIZED BEING ANXIOUS AND RESTLESS AND REQUESTED KLONOPIN. PRN KLONOPIN 0.5 MG 1 TAB PO ADMINISTERED. WILL CONTINUE TO MONITOR FOR ANY CHANGE OF CONDITION.
[2021-09-10] MEDS: ZOLPIDEM TARTRATE 10 MG TABLET PO PRN ×2 (00:53→23:35)
--- NOTE | 2021-09-10 00:56 | NUR ---
RN NOTE: INSOMNIA PATIENT C/O INABILITY TO SLEEP, PER PATIENT REQUEST, PRN AMBIEN 10 MG 1 TAB PO ADMINISTERED ORDERED.
[2021-09-10] MEDS: ALBUTEROL FS 2.5 MG/3 ML VIAL.NEB NEB SCH ×4 (01:30→20:14)
--- NOTE | 2021-09-10 01:37 | NUR ---
PT REFUSED TX AT THIS TIME. NO RESPIRATORY DISTRESS NOTED. RN AWARE.
[2021-09-10] MEDS: diphenhydrAMINE HCL 50 MG CAPSULE PO PRN (03:20)
--- NOTE | 2021-09-10 03:24 | NUR ---
RN NOTE: ALLERGY PATIENT C/O ALLERGY/RUNNY NOSE AND REQUESTED TO TAKE BENADRYL. PER PATIENT REQUEST PRN BENADRYL 50 MG PO ADMINISTERED ORDERED.
[2021-09-10 08:00] VITALS: BP 131/76
[2021-09-10] MEDS: BUDESONIDE RESPULE INH 0.5 MG/2 ML AMPUL.NEB NEB SCH ×2 (08:13→16:25)
[2021-09-10] MEDS: IPRATROPIUM BROMIDE 0.06% 15 ML NASPR NS SCH (08:15)
[2021-09-10] MEDS: MELOXICAM 7.5 MG TABLET PO SCH (08:20)
[2021-09-10] MEDS: DULOXETINE HCL 30 MG CAPSULE.DR PO SCH ×2 (08:20→13:09)
[2021-09-10] MEDS: CHOLECALCIFEROL 1,000 UNIT TABLET (VIT D3) PO SCH (08:20)
[2021-09-10] MEDS: DOCUSATE SODIUM 100 MG CAPSULE PO SCH (08:20)
[2021-09-10] MEDS: clonazePAM 0.5 MG TABLET PO PRN ×3 (08:20→22:00)
--- NOTE | 2021-09-10 08:20 | NUR ---
Patient c/o anxiety medicated with Ativan 1mg x1 will continue to monitor .
[2021-09-10] MEDS: PANTOPRAZOLE 40 MG TABLET.DR PO SCH (08:23)
[2021-09-10] MEDS: HYDROCODONE/APAP 10/325MG TABLET PO PRN ×2 (09:47→15:52)
--- NOTE | 2021-09-10 10:47 | NUR ---
Patient c/o lower back pain medicated with [place] 10/325mg will continue to monitor .
[2021-09-10 15:39] VITALS: BP 137/64
--- NOTE | 2021-09-10 15:52 | NUR ---
Patient c/o lower back pain medicated with [place] 10/325mg will continue to monitor .
[2021-09-10] MEDS: ATORVASTATIN 40 MG TABLET PO SCH (17:06)
[2021-09-10 20:35] VITALS: BP 119/79
--- NOTE | 2021-09-10 22:00 | NUR ---
GPS RN NOTES: ANXIETY PATIENT C/O FEELING ANXIOUS. PRN KLONOPIN 0.5MG PO GIVEN PER PATIENT'S REQUEST. WILL CONTINUE TO MONITOR FOR PATIENT'S SAFETY.
--- NOTE | 2021-09-10 23:35 | NUR ---
GPS-RN NOTES: INSOMNIA PATIENT C/O INABILITY TO SLEEP. PRN AMBIEN 10MG PO GIVEN PER PATIENT'S REQUEST. WILL CONTINUE TO MONITOR.
[2021-09-11] MEDS: ALBUTEROL FS 2.5 MG/3 ML VIAL.NEB NEB SCH ×4 (01:30→20:46)
[2021-09-11 08:00] VITALS: BP 125/60
--- NOTE | 2021-09-11 08:20 | NUR ---
RT Pt refused neb tx, no respiratory distress noted at this time, RN informed.
[2021-09-11] MEDS: PANTOPRAZOLE 40 MG TABLET.DR PO SCH (08:36)
[2021-09-11] MEDS: DOCUSATE SODIUM 100 MG CAPSULE PO SCH (08:36)
[2021-09-11] MEDS: DULOXETINE HCL 30 MG CAPSULE.DR PO SCH ×2 (08:37→13:43)
[2021-09-11] MEDS: MELOXICAM 7.5 MG TABLET PO SCH (08:37)
[2021-09-11] MEDS: clonazePAM 0.5 MG TABLET PO PRN ×2 (08:37→14:42)
[2021-09-11] MEDS: CHOLECALCIFEROL 1,000 UNIT TABLET (VIT D3) PO SCH (08:37)
[2021-09-11] MEDS: HYDROCODONE/APAP 10/325MG TABLET PO PRN ×2 (08:41→14:45)
[2021-09-11] MEDS: BUDESONIDE RESPULE INH 0.5 MG/2 ML AMPUL.NEB NEB SCH ×2 (09:00→17:00)
[2021-09-11] MEDS: IPRATROPIUM BROMIDE 0.06% 15 ML NASPR NS SCH ×2 (11:58→16:07)
[2021-09-11 16:00] VITALS: BP 131/63
--- NOTE | 2021-09-11 17:56 | NUR ---
RT PT WAS EATING, REFUSED NEB TX AT THIS TIME FOR BUDESONIDE.
[2021-09-11] MEDS: ATORVASTATIN 40 MG TABLET PO SCH (18:02)
[2021-09-11 20:05] VITALS: BP 134/76
[2021-09-11] MEDS: ZOLPIDEM TARTRATE 10 MG TABLET PO PRN (23:13)
--- NOTE | 2021-09-11 23:15 | NUR ---
RN NOTE: INSOMNIA PATIENT VERBALIZED INABILITY TO SLEEP AND REQUESTED SLEEPING MEDICINE. PER PATIENT REQUEST PRN AMBIEN 10 MG PO ADMINISTERED.
[2021-09-12] MEDS: clonazePAM 0.5 MG TABLET PO PRN ×4 (00:14→22:10)
--- NOTE | 2021-09-12 00:16 | NUR ---
RN NOTE: ANXIETY PATIENT VERBALIZED BEING ANXIOUS AND RESTLESS AND REQUESTED KLONOPIN. PRN KLONOPIN 0.5 MG 1 TAB PO ADMINISTERED ORDERED. WILL CONTINUE TO MONITOR FOR ANY CHANGE OF CONDITION.
[2021-09-12] MEDS: ALBUTEROL FS 2.5 MG/3 ML VIAL.NEB NEB SCH ×4 (01:30→19:39)
[2021-09-12] MEDS: diphenhydrAMINE HCL 50 MG CAPSULE PO PRN (06:26)
--- NOTE | 2021-09-12 06:28 | NUR ---
RN NOTE: ALLERGY PATIENT C/O ALLERGY/RUNNY NOSE AND REQUESTED TO TAKE BENADRYL. PER PATIENT REQUEST PRN BENADRYL 50 MG PO ADMINISTERED ORDERED.
[2021-09-12 08:00] VITALS: BP 142/74
[2021-09-12] MEDS: PANTOPRAZOLE 40 MG TABLET.DR PO SCH (08:06)
[2021-09-12] MEDS: DOCUSATE SODIUM 100 MG CAPSULE PO SCH (08:06)
[2021-09-12] MEDS: DULOXETINE HCL 30 MG CAPSULE.DR PO SCH ×2 (08:06→13:00)
[2021-09-12] MEDS: MELOXICAM 7.5 MG TABLET PO SCH (08:06)
[2021-09-12] MEDS: CHOLECALCIFEROL 1,000 UNIT TABLET (VIT D3) PO SCH (08:07)
[2021-09-12] MEDS: IPRATROPIUM BROMIDE 0.06% 15 ML NASPR NS SCH ×2 (08:08→16:06)
[2021-09-12] MEDS: BUDESONIDE RESPULE INH 0.5 MG/2 ML AMPUL.NEB NEB SCH ×3 (08:11→16:56)
--- NOTE | 2021-09-12 10:57 | NUR ---
RN NOTE: ANXIETY PATIENT REQUESTED KLONOPIN. PRN KLONOPIN 0.5 MG 1 TAB PO ADMINISTERED ORDERED. WILL CONTINUE TO MONITOR FOR ANY CHANGE OF CONDITION.
[2021-09-12] MEDS: HYDROCODONE/APAP 10/325MG TABLET PO PRN ×2 (13:04→20:11)
[2021-09-12 16:00] VITALS: BP 144/86
--- NOTE | 2021-09-12 16:16 | NUR ---
RN NOTE: ANXIETY PATIENT REQUESTED KLONOPIN. PRN KLONOPIN 0.5 MG 1 TAB PO ADMINISTERED ORDERED. WILL CONTINUE TO MONITOR FOR ANY CHANGE OF CONDITION.
[2021-09-12] MEDS: ATORVASTATIN 40 MG TABLET PO SCH (17:15)
[2021-09-12 19:35] VITALS: BP 130/59
[2021-09-12 20:10] VITALS: BP 130/59
--- NOTE | 2021-09-12 20:14 | NUR ---
RN NOTE: PAIN PATIENT C/O LOWER BACK PAIN 04/27 AND REQUESTED PAIN MEDICINE. PRN NORCO 10/325 MG 1 TAB PO ADMINISTERED ORDERED.
--- NOTE | 2021-09-12 22:12 | NUR ---
RN NOTE: ANXIETY PATIENT VERBALIZED FEELING ANXIOUS AND RESTLESS AND REQUESTED KLONOPIN. PRN KLONOPIN 0.5 MG 1 TAB PO ADMINISTERED ORDERED. WILL CONTINUE TO MONITOR FOR ANY CHANGE OF CONDITION.
[2021-09-12] MEDS: TRAZODONE 50 MG TABLET PO SCH (23:54)
--- NOTE | 2021-09-12 23:57 | NUR ---
RN NOTE: PATIENT DENIED HAVING TRAZODONE ALLERGY PATIENT HAD TRAZODONE 100 MG SCHEDULED AT 2200 ORDERED. PATIENT IS A & O X 4. PATIENT REQUESTED TO TAKE TRAZODONE AFTER 2330 TONIGHT AND WANTED TO TAKE KLONOPIN FIRST DUE TO ANXIETY. PATIENT'S ACCOUNT SHOWS THAT PATIENT HAS TRAZODONE ALLERGY, VERIFIED WITH THE PATIENT, PER PATIENT," I HAVE TAKEN TRAZODONE IN THE PAST, I HAVE NO ALLERGY TO TRAZODONE, IT'S JUST I DIDN'T WANT TO TAKE IT ALL THE TIME SINCE I HAD A BAD DREAM AFTER TAKING TRAZODONE LAST TIME BUT DR. SANCHEZ HAS EXPLAINED TO ME ALREADY SO I CAN TAKE TRAZODONE FOR FEW DAYS TO SEE IF IT IS EFFECTIVE FOR ME OR NOT. I HAVE NEVER HAD ANY PHYSICAL REACTION TO TRAZODONE WHILE I WAS TAKING IT BEFORE" PER PATIENT REQUEST AND ORDERED BY DOCTOR SANCHEZ, ADMINISTERED TRAZODONE 100 MG PO AT THIS TIME. WILL CONTINUE TO MONITOR FOR ANY CHANGE OF CONDITION.
[2021-09-13] MEDS: ALBUTEROL FS 2.5 MG/3 ML VIAL.NEB NEB SCH ×4 (00:30→19:30)
--- NOTE | 2021-09-13 02:20 | NUR ---
RN NOTE PATIENT WOKE UP AND CAME OUT OF HER ROOM. NO C/O TRAZODONE ALLERGIC REACTIONS VERBALIZED BY THE PATIENT AT THIS TIME. PER PATIENT," AFTER TAKING TRAZODONE I SLEPT FOR ABOUT TWO HOURS, BETTER THAN LAST NIGHT." WILL CONTINUE TO MONITOR FOR ANY CHANGE OF CONDITION.
[2021-09-13] MEDS: diphenhydrAMINE HCL 50 MG CAPSULE PO PRN (02:27)
--- NOTE | 2021-09-13 02:28 | NUR ---
RN NOTE: ALLERGY PATIENT C/O ALLERGY/RUNNY NOSE AND REQUESTED TO TAKE BENADRYL. PER PATIENT REQUEST PRN BENADRYL 50 MG PO ADMINISTERED ORDERED.
[2021-09-13] MEDS: PANTOPRAZOLE 40 MG TABLET.DR PO SCH (07:30)
[2021-09-13 08:00] VITALS: BP 107/66
[2021-09-13] MEDS: DOCUSATE SODIUM 100 MG CAPSULE PO SCH (08:48)
[2021-09-13] MEDS: MELOXICAM 7.5 MG TABLET PO SCH (08:48)
[2021-09-13] MEDS: DULOXETINE HCL 30 MG CAPSULE.DR PO SCH ×2 (08:48→13:57)
[2021-09-13] MEDS: clonazePAM 0.5 MG TABLET PO PRN ×3 (08:48→21:52)
[2021-09-13] MEDS: CHOLECALCIFEROL 1,000 UNIT TABLET (VIT D3) PO SCH (08:48)
--- NOTE | 2021-09-13 08:48 | NUR ---
Patient c/o anxiety medicated with Ativan 1mg x1 will continue to monitor .
[2021-09-13] MEDS: IPRATROPIUM BROMIDE 0.06% 15 ML NASPR NS SCH ×2 (09:00→17:00)
[2021-09-13] MEDS: BUDESONIDE RESPULE INH 0.5 MG/2 ML AMPUL.NEB NEB SCH ×2 (09:32→17:00)
--- NOTE | 2021-09-13 10:45 | NUR ---
SW Note: SW met with patient to discuss discharge planning and what would be the next step for pt. SW offered pt home health services and pt denied. SW offered pt nursing facility and pt denied. Pt stated "what do I need it for, I can take care of myself". Pt denied all the resources and options this SW provided for pt.
--- NOTE | 2021-09-13 14:21 | NUR ---
Patient c/o anxiety medicated with Ativan 1mg x1 will continue to monitor .
--- NOTE | 2021-09-13 14:50 | NUR ---
PATIENT REFUSED FURTHER TREATMENTS FOR TODAY DUE COMPLAINING PALPIPTATION RN NOTIFIED. ALSO MDI TREATMENT WERE COMMMUNICATED TO RN TO GIVEN TO PATIENT BY PATIENT RN. PATIENT REMAIN STABLE WITHOUT DISTRESS. Addendum: 09/13/21 at 1500 by CHE WOODS RT Amended: Links added.
[2021-09-13 15:59] VITALS: BP 128/72
[2021-09-13] MEDS: HYDROCODONE/APAP 10/325MG TABLET PO PRN (16:14)
--- NOTE | 2021-09-13 16:14 | NUR ---
Patient c/o lower back pain medicated with [place] 10/325mg will continue to monitor .
[2021-09-13] MEDS: ATORVASTATIN 40 MG TABLET PO SCH (17:33)
--- NOTE | 2021-09-13 17:36 | NUR ---
SEE RESP NOTE FOR DETAILS. Addendum: 09/13/21 at 1737 by CHE WOODS RT Amended: Links added.
--- NOTE | 2021-09-13 19:26 | NUR ---
in bed alert and orientated x4 reading smiling good eye contact speech clear
[2021-09-13 20:00] VITALS: BP 126/60
--- NOTE | 2021-09-13 21:52 | NUR ---
GPS RN NOTES: ANXIETY PATIENT C/O FEELING ANXIOUS. PRN KLONOPIN 0.5MG PO GIVEN PER PATIENT'S REQUEST. WILL CONTINUE TO MONITOR FOR PATIENT'S SAFETY.
[2021-09-13] MEDS: TRAZODONE 50 MG TABLET PO SCH (22:59)
[2021-09-14] MEDS: ALBUTEROL FS 2.5 MG/3 ML VIAL.NEB NEB SCH ×4 (01:30→19:30)
[2021-09-14] MEDS: PANTOPRAZOLE 40 MG TABLET.DR PO SCH (07:30)
--- NOTE | 2021-09-14 07:59 | NUR ---
RT NOTE PT DIFFERED TX AT THIS TIME. RN MORENO AWARE. NO SOB NOTED.
[2021-09-14 08:00] VITALS: BP 123/64
[2021-09-14] MEDS: BUDESONIDE RESPULE INH 0.5 MG/2 ML AMPUL.NEB NEB SCH ×2 (08:00→17:00)
[2021-09-14] MEDS: IPRATROPIUM BROMIDE 0.06% 15 ML NASPR NS SCH (09:00)
[2021-09-14] MEDS: diphenhydrAMINE HCL 50 MG CAPSULE PO PRN (09:01)
[2021-09-14] MEDS: DOCUSATE SODIUM 100 MG CAPSULE PO SCH (09:02)
[2021-09-14] MEDS: clonazePAM 0.5 MG TABLET PO PRN ×2 (09:02→21:56)
[2021-09-14] MEDS: DULOXETINE HCL 20 MG CAPSULE.DR PO SCH ×2 (09:02→13:38)
[2021-09-14] MEDS: CHOLECALCIFEROL 1,000 UNIT TABLET (VIT D3) PO SCH (09:02)
[2021-09-14] MEDS: MELOXICAM 7.5 MG TABLET PO SCH (09:02)
--- NOTE | 2021-09-14 09:02 | NUR ---
Patient c/o anxiety medicated with Ativan 1mg x1 will continue to monitor .
[2021-09-14] MEDS: HYDROCODONE/APAP 10/325MG TABLET PO PRN (14:04)
--- NOTE | 2021-09-14 14:04 | NUR ---
Patient c/o lower back pain medicated with [place] 10/325mg will continue to monitor .
[2021-09-14 16:06] VITALS: BP 122/74
[2021-09-14] MEDS: ATORVASTATIN 40 MG TABLET PO SCH (17:34)
[2021-09-14 20:00] VITALS: BP 137/69
--- NOTE | 2021-09-14 21:56 | NUR ---
GPS RN NOTES: ANXIETY PATIENT C/O FEELING ANXIOUS. PRN KLONOPIN 0.5MG PO GIVEN PER PATIENT'S REQUEST. WILL CONTINUE TO MONITOR FOR PATIENT'S SAFETY.
[2021-09-14] MEDS: TRAZODONE 50 MG TABLET PO SCH (22:40)
[2021-09-15] MEDS: ALBUTEROL FS 2.5 MG/3 ML VIAL.NEB NEB SCH ×4 (01:30→19:30)
[2021-09-15] MEDS: diphenhydrAMINE HCL 50 MG CAPSULE PO PRN (02:34)
[2021-09-15] MEDS: PANTOPRAZOLE 40 MG TABLET.DR PO SCH (07:54)
[2021-09-15 08:00] VITALS: BP 127/68
--- NOTE | 2021-09-15 08:03 | NUR ---
RT PATIENT REFUSED TX AT THIS TIME. RN NOTIFIED AND AWARE. NO SOB NOTED AT THIS TIME.
[2021-09-15] MEDS: DULOXETINE HCL 20 MG CAPSULE.DR PO SCH ×2 (08:29→12:30)
[2021-09-15] MEDS: DOCUSATE SODIUM 100 MG CAPSULE PO SCH (08:29)
[2021-09-15] MEDS: CHOLECALCIFEROL 1,000 UNIT TABLET (VIT D3) PO SCH (08:29)
[2021-09-15] MEDS: MELOXICAM 7.5 MG TABLET PO SCH (08:29)
[2021-09-15] MEDS: IPRATROPIUM BROMIDE 0.06% 15 ML NASPR NS SCH ×2 (09:00→17:00)
[2021-09-15] MEDS: BUDESONIDE RESPULE INH 0.5 MG/2 ML AMPUL.NEB NEB SCH ×2 (09:00→17:38)
[2021-09-15] MEDS: clonazePAM 0.5 MG TABLET PO PRN ×2 (09:33→22:19)
--- NOTE | 2021-09-15 09:42 | NUR ---
RN-NOTES PATIENT REQUESTING KLONOPIN , STATED" I NEED MY KLONOPIN". KLONOPIN 0.5MG P.O GIVEN PRN ORDER. WILL CONT. MONITORING FOR SAFETY AND BEHAVIOR.
--- NOTE | 2021-09-15 10:45 | NUR ---
RN-NOTES PATIENT IN BED INTERMITTENTLY SLEEPING,NO ACUTE DISTRESS NOTED.
--- NOTE | 2021-09-15 10:49 | NUR ---
Coordination of Care: Patient will follow up primary doctor Laura Preston MD located at [address] [facility] [address], [place] [address]; on September 30 at 2:45PM who will monitor and provide psychotropic medications. Scheduled by salon receptionist Dionte.
[2021-09-15 16:00] VITALS: BP 134/60
[2021-09-15] MEDS: HYDROCODONE/APAP 10/325MG TABLET PO PRN (16:13)
[2021-09-15] MEDS: ATORVASTATIN 40 MG TABLET PO SCH (17:24)
[2021-09-15 20:00] VITALS: BP 140/78
[2021-09-15] MEDS: TRAZODONE 50 MG TABLET PO SCH (23:22)
[2021-09-16] MEDS: diphenhydrAMINE HCL 50 MG CAPSULE PO PRN (00:55)
[2021-09-16] MEDS: ALBUTEROL FS 2.5 MG/3 ML VIAL.NEB NEB SCH ×4 (01:30→20:25)
[2021-09-16 08:00] VITALS: BP 125/57
[2021-09-16] MEDS: PANTOPRAZOLE 40 MG TABLET.DR PO SCH (08:16)
[2021-09-16] MEDS: DULOXETINE HCL 20 MG CAPSULE.DR PO SCH ×2 (08:16→12:09)
[2021-09-16] MEDS: MELOXICAM 7.5 MG TABLET PO SCH (08:16)
[2021-09-16] MEDS: CHOLECALCIFEROL 1,000 UNIT TABLET (VIT D3) PO SCH (08:16)
[2021-09-16] MEDS: DOCUSATE SODIUM 100 MG CAPSULE PO SCH (08:16)
[2021-09-16] MEDS: BUDESONIDE RESPULE INH 0.5 MG/2 ML AMPUL.NEB NEB SCH (08:31)
--- NOTE | 2021-09-16 08:32 | NUR ---
RT NOTE PATIENT REFUSING HHN TX AT THIS TIME. NO RESPIRATORY DISTRESS NOTED. PRIMARY NURSE IS AWARE.
[2021-09-16] MEDS: IPRATROPIUM BROMIDE 0.06% 15 ML NASPR NS SCH ×3 (08:43→16:33)
[2021-09-16] MEDS: clonazePAM 0.5 MG TABLET PO PRN (08:47)
[2021-09-16] MEDS ORDERED: CLONIDINE HCL 0.1 MG TABLET PO PRN (10:30)
[2021-09-16] MEDS: LORAZEPAM 1 MG TABLET PO PRN ×2 (14:52→22:32)
[2021-09-16 16:00] VITALS: BP 133/78
[2021-09-16] MEDS: ATORVASTATIN 40 MG TABLET PO SCH (17:42)
[2021-09-16 18:07] LABS: BILIRUBIN,URINE NEGATIVE (NEGATIVE); COLOR,URINE YELLOW (YELLOW); LEUKOCYTE ESTERASE ,URINE MODERATE (NEGATIVE); NITRITE, URINE NEGATIVE (NEGATIVE); PH,URINE 6.5 (5.0-8.0); PROTEIN,URINE NEGATIVE (NEGATIVE); UGLUCOSE NEGATIVE (NEGATIVE); UROBILINOGEN,URINE 0.2 EU/dL (0.2)
[2021-09-16 18:23] LABS: BACTERIA,URINE 3+ /HPF (None Seen); RBC,URINE 21-50 /HPF (0-2); WBC,URINE 21-50 /HPF (0-3)
[2021-09-16 20:00] VITALS: BP 136/79
--- NOTE | 2021-09-16 20:25 | NUR ---
RT PT refused HHN TX and does not want the next one either. Pt has no signs of SOB or respiratory distress at this time. RN Informed.
[2021-09-16] MEDS: TRAZODONE 50 MG TABLET PO SCH (22:59)
[2021-09-17] MEDS: diphenhydrAMINE HCL 50 MG CAPSULE PO PRN ×2 (00:35→23:59)
[2021-09-17] MEDS: ALBUTEROL FS 2.5 MG/3 ML VIAL.NEB NEB SCH ×4 (01:30→19:30)
[2021-09-17 08:00] VITALS: BP 136/81
[2021-09-17] MEDS: CHOLECALCIFEROL 1,000 UNIT TABLET (VIT D3) PO SCH (08:23)
[2021-09-17] MEDS: MELOXICAM 7.5 MG TABLET PO SCH (08:23)
[2021-09-17] MEDS: DULOXETINE HCL 20 MG CAPSULE.DR PO SCH ×2 (08:24→12:15)
[2021-09-17] MEDS: DOCUSATE SODIUM 100 MG CAPSULE PO SCH (08:24)
[2021-09-17] MEDS: PANTOPRAZOLE 40 MG TABLET.DR PO SCH (08:24)
[2021-09-17] MEDS: BUDESONIDE RESPULE INH 0.5 MG/2 ML AMPUL.NEB NEB SCH ×2 (09:00→17:00)
[2021-09-17] MEDS: IPRATROPIUM BROMIDE 0.06% 15 ML NASPR NS SCH ×2 (09:00→16:22)
[2021-09-17] MEDS: clonazePAM 0.5 MG TABLET PO PRN (09:27)
[2021-09-17] MEDS: HYDROCODONE/APAP 10/325MG TABLET PO PRN ×2 (14:04→20:06)
[2021-09-17 16:00] VITALS: BP 147/86
[2021-09-17] MEDS: ATORVASTATIN 40 MG TABLET PO SCH (17:05)
--- NOTE | 2021-09-17 19:50 | NUR ---
RN OPENING NOTES Patient is A&Ox3, resting in bed. Per pt. her back has been hurting today. No behavioral issues at this time. Will start on bactrim tonight for UTI. pt. does report minimal discomfort upon urination. Continue with q15min checks for safety and behavior.
[2021-09-17 20:00] VITALS: BP 132/79
[2021-09-17] MEDS: SULFAMETH/TRIMETH 800/160 MG 1 UDTAB TABLET PO SCH (20:05)
[2021-09-17] MEDS: TRAZODONE 50 MG TABLET PO SCH ×2 (21:45→22:59)
[2021-09-18] MEDS: ALBUTEROL FS 2.5 MG/3 ML VIAL.NEB NEB SCH ×4 (01:30→20:33)
[2021-09-18 07:00] VITALS: BP 132/79
--- NOTE | 2021-09-18 07:29 | NUR ---
RT PATIENT ASSESSED. NO SOB, AWAKE, ALERT. CLEAR B/S. PATIENT REFUSED RESP HHN TX. SHE STATES IT GIVES HER PALPITATIONS. WILL REQUEST TO HAVE TX'S MADE PRN
[2021-09-18 08:00] VITALS: BP 111/59
[2021-09-18] MEDS: PANTOPRAZOLE 40 MG TABLET.DR PO SCH (08:21)
[2021-09-18] MEDS: DOCUSATE SODIUM 100 MG CAPSULE PO SCH (08:21)
[2021-09-18] MEDS: MELOXICAM 7.5 MG TABLET PO SCH (08:21)
[2021-09-18] MEDS: DULOXETINE HCL 20 MG CAPSULE.DR PO SCH ×2 (08:21→12:06)
[2021-09-18] MEDS: SULFAMETH/TRIMETH 800/160 MG 1 UDTAB TABLET PO SCH ×2 (08:21→20:40)
[2021-09-18] MEDS: CHOLECALCIFEROL 1,000 UNIT TABLET (VIT D3) PO SCH (08:21)
[2021-09-18] MEDS: IPRATROPIUM BROMIDE 0.06% 15 ML NASPR NS SCH ×3 (08:28→16:15)
[2021-09-18] MEDS: clonazePAM 0.5 MG TABLET PO PRN (08:30)
[2021-09-18] MEDS: BUDESONIDE RESPULE INH 0.5 MG/2 ML AMPUL.NEB NEB SCH ×2 (09:00→13:04)
[2021-09-18] MEDS: HYDROCODONE/APAP 10/325MG TABLET PO PRN ×2 (14:29→20:38)
[2021-09-18 16:00] VITALS: BP 118/71
[2021-09-18] MEDS: ATORVASTATIN 40 MG TABLET PO SCH (17:20)
[2021-09-18 20:00] VITALS: BP 131/69
--- NOTE | 2021-09-18 20:33 | NUR ---
RT NOTE PATIENT REFUSING HHN TX. PRIMARY NURSE IS AWARE. NO SOB NOTED.
--- NOTE | 2021-09-18 20:41 | NUR ---
RN NOTE: PAIN PATIENT C/O LOWER BACK PAIN 03/27 AND REQUESTED PAIN MEDICINE. PRN NORCO 10/325 MG 1 TAB PO ADMINISTERED ORDERED.
[2021-09-18] MEDS ORDERED: TRAZODONE 50 MG TABLET PO SCH (22:00)
[2021-09-19] MEDS: diphenhydrAMINE HCL 50 MG CAPSULE PO PRN (00:37)
--- NOTE | 2021-09-19 00:45 | NUR ---
RN NOTE: PATIENT C/O ALLERGY AND REQUESTED TO TAKE BENADRYL. PER PATIENT REQUEST PRN BENADRYL 50 MG PO ADMINISTERED ORDERED.
[2021-09-19] MEDS: ALBUTEROL FS 2.5 MG/3 ML VIAL.NEB NEB SCH ×3 (02:25→13:30)
[2021-09-19 08:00] VITALS: BP 120/68
[2021-09-19] MEDS: SULFAMETH/TRIMETH 800/160 MG 1 UDTAB TABLET PO SCH (08:46)
[2021-09-19] MEDS: DULOXETINE HCL 20 MG CAPSULE.DR PO SCH ×2 (08:46→12:36)
[2021-09-19] MEDS: CHOLECALCIFEROL 1,000 UNIT TABLET (VIT D3) PO SCH (08:46)
[2021-09-19] MEDS: PANTOPRAZOLE 40 MG TABLET.DR PO SCH (08:47)
[2021-09-19] MEDS: DOCUSATE SODIUM 100 MG CAPSULE PO SCH (08:49)
[2021-09-19] MEDS: BUDESONIDE RESPULE INH 0.5 MG/2 ML AMPUL.NEB NEB SCH ×2 (08:49→14:06)
[2021-09-19] MEDS: MELOXICAM 7.5 MG TABLET PO SCH (08:49)
[2021-09-19] MEDS: IPRATROPIUM BROMIDE 0.06% 15 ML NASPR NS SCH (08:49)
--- NOTE | 2021-09-19 10:11 | NUR ---
GPS RN DC ORDERS: PATIENT DISCHARGE BACK HOME LOCATED AT [address] [facility], [place] [address]. PATIENT IN STABLE CONDITION DENIES SI/HI ,DENIES FEELING DEPRESSED AT THIS TIME, VSS, PATIENT AMBULATORY SELF CARE. A/O X4 , NO S/S DISTRESS NOTED,COOPERATIVE COMPLIANT WITH MEDICATIONS.PATIENT SEEN AND EXAMINE BY PSYCHIATRIST AND MACHINE OVERHAULER, DC ORDER PLACED. RX GIVEN AND EXPLAIN TO PT, ALL BELONGINGS AND VALUABLES RETURNED. FOLLOW UP APT GIVEN TO PT.
[2021-09-19] MEDS: HYDROCODONE/APAP 10/325MG TABLET PO PRN (11:14)
--- NOTE | 2021-09-19 11:25 | NUR ---
RN NOTE: PAIN PATIENT C/O LOWER BACK PAIN 04/27 AND REQUESTED PAIN MEDICINE. PRN NORCO 10/325 MG 1 TAB PO ADMINISTERED ORDERED.
[2021-09-19 11:26] LABS: BILIRUBIN,URINE NEGATIVE (NEGATIVE); COLOR,URINE YELLOW (YELLOW); LEUKOCYTE ESTERASE ,URINE LARGE (NEGATIVE); NITRITE, URINE NEGATIVE (NEGATIVE); PROTEIN,URINE NEGATIVE (NEGATIVE); UGLUCOSE NEGATIVE (NEGATIVE); UROBILINOGEN,URINE 0.2 EU/dL (0.2)
[2021-09-19 12:35] LABS: BACTERIA,URINE Few /HPF (None Seen); RBC,URINE 0-3 /HPF (0-2)
[2021-09-19 12:36] LABS: SQUAMOUS EPITHELIAL CELL,UR Moderate /HPF (None Seen); WBC,URINE 21-50 /HPF (0-3)
--- NOTE | 2021-09-19 12:58 | NUR ---
GPS RN NOTE: DR ARANA NOTIFIED PT UA RESULT. NEW ORDER TO CONTINUE BACTRIM DS 800/160 TAB Q 12 HR HS+[id number].CALLED PHARMACY GIVE THE ORDER EXPLAIN PT TO CONTINUE MEDS.
--- NOTE | 2021-09-21 08:08 | NUR ---
SW LATE ENTRY DISCHARGE NOTE Monday09/18/21: Patient will be discharged back home located at [address] [facility] [address], [place] [address]; ([phone]). Patient appeared to be happy to be going back home. Patient alert and oriented x4. Patient denies suicidal or homicidal ideation. Patient denies visual/auditory hallucinations. Patient will follow up primary doctor Laura Preston MD located at [address] [facility] [address] [address]; on September 30 at 2:45PM who will monitor and provide psychotropic medications. Patient presents with euthymic mood and congruent affect.
== END 2021-09-19 13:30 | disposition home or self-care (01) | DRG 885 ==
LOC: ER 16:32 → TRANSITION 08-30 00:12 → GPS 08-30 08:07
PROVIDERS: ADMIT Nurse Practitioner Psychiatric/Mental Health; ATTEND Family Medicine
DX: F33.2 Major depressive disorder, recurrent severe without psychotic features (principal); N39.0 Urinary tract infection, site not specified; R45.851 Suicidal ideations; F39 Unspecified mood [affective] disorder; J44.9 Chronic obstructive pulmonary disease, unspecified; M19.90 Unspecified osteoarthritis, unspecified site; E78.5 Hyperlipidemia, unspecified; Z91.52 Personal history of nonsuicidal self-harm; F41.9 Anxiety disorder, unspecified; Z20.822 Contact with and (suspected) exposure to COVID-19; Z88.8 Allergy status to other drugs, medicaments and biological substances; Z79.51 Long term (current) use of inhaled steroids; Z79.899 Other long term (current) drug therapy; K21.9 Gastro-esophageal reflux disease without esophagitis; B96.89 Other specified bacterial agents as the cause of diseases classified elsewhere; G47.00 Insomnia, unspecified; Z91.51 Personal history of suicidal behavior
CPT/HCPCS: 36415; 80048-TC; 80053-TC; 80061-TC; 80076-TC; 81001; 82962-TC; 83735-TC; 84100-TC; 85025-TC; 87081-TC; 87086-TC; 87186-TC; 94799-TC; A6403; C9803; G0480; J1200; J3490; Q0163